=== PATIENT | male | born 1980 | race Caucasian/White ===

== ENCOUNTER → 2017-01-12 08:42 | Outpatient (CLI) | payer MEDICAID ==
--- NOTE | 2017-01-15 06:28 | EMG ---
PATIENT:RACH COVARRUBIAS III DATE OF SERVICE: 01/12/17 MEDICAL RECORD: [id number] DATE OF : 82 LOCATION: [facility] ADMISSION DATE: REFERRING PHYSICIAN: RUSSELL CLARKE MD INTERPRETING PHYSICIAN: ARPITA RAI MD DATE OF SERVICE: 01/14/2017 Electromyographic Report REFERRED BY: Dr. Clarke as an outpatient. DATE OF EXAMINATION: 01/12/2017 ELECTROMYOGRAPHIC DATA: Electromyographic examination is limited to both upper extremities and is limited to the nerve conduction studies only at the request of the referring physician. In the right upper extremity, right median motor stimulation elicits a compound motor action potential with a distal latency of 4.4 milliseconds, peak amplitude of 5 millivolts, and calculated conduction velocity of 52 meters per second. Right ulnar motor stimulation elicits a compound motor action potential with a distal latency of 3.1 milliseconds, peak amplitude of 4 millivolts, and calculated conduction velocity of 66 meters per second. Right ulnar motor stimulation across the elbow fails to elicit evidence of conduction block at this level. Antidromic right median sensory stimulation elicits a response with a distal latency of 4.9 milliseconds, amplitude of 8 microvolts and calculated conduction velocity of 61 meters per second. Antidromic right ulnar sensory stimulation elicits a response with a distal latency of 3.2 milliseconds, amplitude of 8 microvolts and calculated conduction velocity of 65 meters per second. The right median F wave has a latency of 31 milliseconds. In the left upper extremity, left median motor stimulation elicits a compound motor action potential with a distal latency of 5.0 milliseconds, peak amplitude of 4 millivolts, and calculated conduction velocity of 57 meters per second. Left ulnar motor stimulation elicits a compound motor action potential with a distal latency of 3.4 milliseconds, peak amplitude of 5 millivolts, and calculated conduction velocity of 61 meters per second. Left ulnar motor stimulation across the elbow fails to elicit evidence of conduction block at this level. Antidromic left median sensory stimulation elicits a response with a distal latency of 5.1 milliseconds, amplitude of 8 microvolts and calculated conduction velocity of 60 meters per second. Antidromic left ulnar sensory stimulation elicits a response with a distal latency of 3.3 milliseconds, amplitude of 19 microvolts and calculated conduction velocity of 62 meters per second. The left median F wave has a latency of 31 milliseconds. Needle electrode examination is not performed at this time. INTERPRETATION: Electromyographic examination of both upper extremities, limited to the nerve conduction studies only at the request of the referring physician, is indicative of median neuropathy, at or distal to the wrists bilaterally, moderate in degree electrically bilaterally, consistent with the diagnosis of bilateral carpal tunnel syndrome. The nerve conduction studies are otherwise normal. ELECTROMYGRAM/NERVE CONDUCTION [id number] COVARRUBIASRACH III TRANSINT:[id number] Voice Confirmation ID: [id number] DOCUMENT ID: [id number] ARPITA RAI MD at 0628 CC: [id number] DICTATION DATE: 01/14/17 0722 BACON SKINNER: 01/14/17 0926 [facility] CLI 01/12/17 [id number] [place] [address]
== END | disposition home or self-care (01) ==
LOC: D.CN 08:42
DX: R20.2 Paresthesia of skin (principal)

== ENCOUNTER 2017-09-22 21:46 | Emergency (ER) | payer MEDICAID ==
[2017-09-22 22:36] LABS: BASOPHILS 0.5 % (0-2); EOSINOPHILS 4.8 % (0-7); HEMATOCRIT 40.9 % (42.0-54.0); HEMOGLOBIN 14.1 g/dL (13.5-17.5); IMMATURE GRANULOCYTES 0.3 % (0-5); LYMPHOCYTES 47.6 % (15-50); MCH 30.7 pg (26.0-34.0); MCHC 34.5 g/dL (31.0-37.0); MCV 88.9 fL (80.0-100.0); MEAN PLATELET VOLUME 9.3 fL (7.4-10.4); MONOCYTES 9.9 % (2-11); NEUTROPHILS 36.9 % (40-80); PLATELET COUNT 229 10x3/uL (130-400); RDW 11.4 % (11.5-14.5); WBC 7.7 10x3/uL (4.8-10.8)
[2017-09-22 22:41] LABS: INR 0.98 (0.85-1.17); PROTIME 12.6 SECONDS (11.6-15.0)
[2017-09-22 22:42] LABS: APTT 29.6 SECONDS (22.8-39.4)
[2017-09-22 22:44] LABS: D-DIMER-QUANTITATIVE < 0.27 ug/mLFEU (0.20-0.54)
[2017-09-22 22:48] LABS: ALBUMIN 3.7 g/dL (3.4-5.0); ALKALINE PHOSPHATASE 73 U/L (46-116); ALT (SGPT) 28 U/L (10-68); BILIRUBIN - TOTAL 0.28 mg/dL (0.2-1.3); CALC OSMOLALITY 278 mosm/kg (275-300); CALCIUM 8.4 mg/dL (8.5-10.1); CARBON DIOXIDE 26.6 mmol/L (21.0-32.0); CHLORIDE - SERUM 104 mmol/L (98-107); CREATININE - SERUM 0.9 mg/dL (0.6-1.3); GLUCOSE 93 mg/dL (74-106); POTASSIUM - SERUM 3.8 mmol/L (3.5-5.1); PROTEIN - SERUM 7.3 g/dL (6.4-8.2); SODIUM 139 mmol/L (136-145); UREA NITROGEN 16 mg/dL (7-18); eGFR NON AFRICAN AMERICAN > 90 mL/min (90-120)
[2017-09-22 23:00] LABS: CKMB 0.5 U/L (0.0-3.6); CREATINE KINASE 138 UL (21-232); MAGNESIUM - SERUM 2.3 mg/dL (1.8-2.4); PRO BNP 23 pg/mL (0-125); TROPONIN-I < 0.017 ng/mL (0.000-0.060)
== END 2017-09-23 02:00 | disposition home or self-care (01) ==
LOC: D.ER 21:46
PROVIDERS: Family Medicine
DX: J20.9 Acute bronchitis, unspecified (principal)

== ENCOUNTER 2018-01-18 05:09 | Day surgery (SDC) | payer MEDICAID ==
[~2018-01-18] VITALS: Ht 175.3 cm; Wt 117.9 kg
--- NOTE | ~2018-01-18 | OP ---
PATIENT NAME: RACH COVARRUBIAS III MEDICAL RECORD: [id number] :82 LOCATION:[facility] ADMISSION DATE: SURGEON: WILLY GILMAN DO DATE OF OPERATION: 01/18/2018 PROCEDURE PERFORMED: Left endoscopic carpal tunnel release. PREOPERATIVE DIAGNOSIS: Left carpal tunnel syndrome. POSTOPERATIVE DIAGNOSIS: Left carpal tunnel syndrome. INDICATIONS: Mr. Covarrubias is a 37-year-old male who presented to my office this week complaining of carpal tunnel symptoms. He said his left hand worse than his right, will go to sleep, wake him up at night every night. He is tired of the pain. He said any time he would drive or talk on the cell phone, his hand would go numb and tingle and painful. He had a nerve conduction study about a year ago, which showed a distal motor latency of the median nerve on the left of 5.0 milliseconds and on the right of 4.4. I informed him that the left is certainly worse than the right. He had positive carpal tunnel compression test and told him that we could do the procedure and that informed him of the risks and benefits including damage to nerve, bleeding, infection and need for further surgery. He was okay with those risks and consented to the procedure. SURGEON: Willy Gilman DO DESCRIPTION OF PROCEDURE: The patient was taken to the operative suite, laid in supine position, given general anesthetic and 2 grams Ancef preoperatively. The left upper extremity was prepped and draped with a tourniquet above the elbow under the drapes. Once was prepped and draped, a timeout was performed. Everyone was in agreement with the correct side, site and patient and procedure. Incision was then marked out just proximal to the wrist crease and over the palmaris longus tendon. The incision was then made through the skin only and then careful blunt dissection was made down with Ragnell retractors into the carpal tunnel itself. The median nerve was encountered and the forearm fascia was released proximally with direct visualization using a scissors and pickups. Then, the carpal tunnel was entered with the measuring device and the dilators. Once was dilated up, the sheath was entered into the carpal tunnel. Prior to all this to starting, the left upper extremity was exsanguinated with an Esmarch and tourniquet was inflated to 250 mmHg. It was up for 17 minutes. Once the sheath was entered and had a good view of the transverse carpal ligament, this was probed and also rasped to ensure that there was nothing in the ligament. There was no nerve branch going through it and the knife blade was entered into the sheath and then raised up and the transverse carpal ligament, which was quite thick was divided with the blade. As the full thickness of the ligament was divided, fat herniated down into the carpal tunnel ensuring good release, then the blade and the sheath was withdrawn and Ragnell larger was used to lift the skin to ensure there was complete release of the transverse carpal ligament and there was good release. Scissors was also used to spread to ensure there was complete release. There were no remaining fibers. The tourniquet was then let down at 17 minutes. Pressure was held on the wound. Any bleeding was coagulated at time with the bipolar and 10 mL of 0.5% Marcaine without epinephrine was injected around the site. The incision was then closed with 5-0 Monocryl in inverted interrupted fashion and Steri-Strips. Steri-Strips, Adaptic, 4 x 4's, Kerlix, and a Coban was lightly placed over the wound and the hand was wrapped. The patient was awakened and taken to recovery in stable OPERATIVE REPORT [id number] RACH COVARRUBIAS III condition. TRANSINT:[id number] Voice Confirmation ID: [id number] DOCUMENT ID: [id number] WILLY GILMAN DO at 1207 CC: [id number] DICTATION DATE: 01/18/18 08 CALL CENTER TEAM LEADER: 01/18/18 1153 [facility] 01/18/18 [address] [place] [address]
[2018-01-18 06:18] VITALS: BP 117/76; Ht 175.3 cm; Wt 117.9 kg
[2018-01-18] MEDS ORDERED: DURICEF500 MG PO (07:59)
[2018-01-18] MEDS ORDERED: PERCOCET 5-3251 TAB PO (07:59)
[2018-02-28] MEDS ORDERED: IBUPROFEN800 MG (09:47)
== END 2018-01-18 09:45 | disposition home or self-care (01) ==
LOC: D.OPS 05:09 → D.PAN 07:30 → D.OPS 09:45
DX: G56.03 Carpal tunnel syndrome, bilateral upper limbs (principal); Z01.812 Encounter for preprocedural laboratory examination

== ENCOUNTER → 2018-01-31 14:05 | Outpatient (CLI) | payer MEDICAID ==
[2018-01-18 06:18] VITALS: BMI 38.5
[~2018-01-31 14:05] MED LIST: DURICEF500 MG PO; IBUPROFEN800 MG; KEFLEX500 MG PO; PERCOCET 5-3251 TAB PO; PERCOCET 7.5/321 TAB PO; TORADOL10 MG PO
== END | disposition home or self-care (01) ==
LOC: D.RAD 01-30 13:30 → D.MRI 01-30 14:30 → D.RAD 14:00
DX: M25.312 Other instability, left shoulder (principal)

== ENCOUNTER 2018-02-01 10:20 | Day surgery (SDC) | payer MEDICAID ==
[~2018-02-01] VITALS: Ht 175.3 cm; Wt 117.9 kg
--- NOTE | ~2018-02-01 | OP ---
PATIENT NAME: RACH COVARRUBIAS III MEDICAL RECORD: [id number] :82 LOCATION:[facility] ADMISSION DATE: SURGEON: WILLY GILMAN DO DATE OF OPERATION: 02/01/2018 PROCEDURE PERFORMED: Right endoscopic carpal tunnel release. PREOPERATIVE DIAGNOSIS: Right carpal tunnel syndrome. POSTOPERATIVE DIAGNOSIS: Right carpal tunnel syndrome. INDICATIONS: Mr. Covarrubias is a 37-year-old male that had his left endoscopic carpal tunnel done 2 weeks ago. He had a nerve conduction study last year that showed carpal tunnel syndrome on bilateral wrists. He chose to do the left one first. Today, he was here for the right. He is aware of the risks and benefits of the procedure. DESCRIPTION OF PROCEDURE: The patient was taken to the operative suite, laid in supine position, given general anesthetic and 2 grams of Ancef preoperatively. The right upper extremity was prepped and draped in sterile fashion. Everyone was in agreeance with the correct side, site, patient and procedure during the time-out. After he was prepped and draped and a timeout had been performed, a tourniquet was placed under the drapes, above the elbow, and then incision began just proximal to the wrist crease with a #15 blade scalpel, then Ragnells were used to bluntly dissect down to the carpal tunnel itself of proximal forearm. The forearm fascia distally was released first, distal-proximal, and then the carpal tunnel was entered with the dilators. Once the dilators had dilated up, the sheath was entered into the carpal tunnel. Camera was then entered in viewing the transverse carpal ligament. A rasp and probe were used to ensure that the only thing above the sheath was the transverse carpal ligament. Upon viewing this and feeling it, the blade was then entered and then the transcarpal ligament was transected. Then, a sheath and knife were removed and the more proximal part of the incision site of the transverse carpal ligament was divided with scissors and pickup. Then, a Calvin retractor was placed into the wound. The non-sharpened and the transverse carpal ligament was viewed and seen to be completely transected under loupe magnification. The tourniquet was then let down at 12 minutes. The right upper extremity had been exsanguinated prior to the incision and tourniquet was inflated to 250 mmHg. After the tourniquet was let down, the palm and the incision site was injected with 0.25% Marcaine with epinephrine, 10 mL around the site and any bleeding after that was coagulated with a bipolar. The incision was then closed with 5-0 Monocryl in inverted interrupted fashion. Steri-Strips was placed over the wound and Adaptic and a 4 x 4 and Tegaderm were placed on the incision site, and Kerlix and Coban was lightly wrapped on the wound. The patient was awakened and taken to recovery in stable condition. Blood loss was minimal. COMPLICATIONS: None. TRANSINT:[id number] Voice Confirmation ID: [id number] DOCUMENT ID: [id number] OPERATIVE REPORT [id number] RACH COVARRUBIAS III,WILLY Proctor DO at 1940 CC: [id number] DICTATION DATE: 02/01/18 1528 CLINICAL TRIAL ASSOCIATE: 02/01/18 1702 [facility] 02/01/18 [facility] [address] [place] [address]
[~2018-02-01 10:20] MED LIST changes: -IBUPROFEN800 MG; -KEFLEX500 MG PO; -PERCOCET 7.5/321 TAB PO; -TORADOL10 MG PO
[2018-02-01 13:09] VITALS: BP 122/80; Ht 175.3 cm; Wt 117.9 kg
[2018-02-01] MEDS ORDERED: PERCOCET 5-3251 TAB PO (15:21)
[2018-02-01] MEDS ORDERED: DURICEF500 MG PO (15:22)
[2018-02-28] MEDS ORDERED: IBUPROFEN800 MG (09:47)
== END 2018-02-01 17:55 | disposition home or self-care (01) ==
LOC: D.OPS 10:20 → D.PAN 14:15 → D.OPS 14:15 → D.PAN 15:20 → D.OPS 15:30
DX: G56.01 Carpal tunnel syndrome, right upper limb (principal); Z01.812 Encounter for preprocedural laboratory examination

== ENCOUNTER 2018-03-01 08:25 | Day surgery (SDC) | payer MEDICAID ==
[~2018-03-01] VITALS: Ht 175.3 cm; Wt 117.9 kg
--- NOTE | ~2018-03-01 | OP ---
PATIENT NAME: RACH COVARRUBIAS III MEDICAL RECORD: [id number] :82 LOCATION:[facility] ADMISSION DATE: SURGEON: WILLY GILMAN DO DATE OF OPERATION: 03/01/2018 PROCEDURE PERFORMED: Left shoulder arthroscopy with Bankart repair, mini open rotator cuff and biceps tenodesis. PREOPERATIVE DIAGNOSIS: Left shoulder anterior instability, labral tear and rotator cuff tear. POSTOPERATIVE DIAGNOSIS: Left shoulder anterior instability, labral tear and rotator cuff tear. INDICATIONS: Mr. Covrarubias is a 37-year-old male that dislocated his left shoulder approximately a year ago, when he fell, he had it reduced and then has had left shoulder pain since. He asked me to look at it as I have done his carpal tunnels. He got an MRI, which showed a large labral tear from 1 o'clock to 8 o'clock on the glenoid face. He had apprehension sign as well as a large rotator cuff tear in the supraspinatus and the bicep tendon was partially torn as well and the shoulder joint itself on the MRI. I showed these findings with him and informed him that it would be quite an extensive surgery as we do a rotator cuff repair along with a Bankart repair and bicep tenodesis. He was okay with that and is aware of the risks and benefits of the procedure including infection, bleeding, damage to nerves and vessels, need for further surgery, failure of the repair. He was okay with proceeding forward. SURGEON: Willy Gilman DO DESCRIPTION OF PROCEDURE: The patient had a block by anesthesia in the preoperative area and taken to the operative suite, laid in the right lateral recumbent position with the left arm prepped and draped. Timeout was performed. Everyone was in agreement with the correct side, site, and patient. The patient was given 900 mg of clindamycin before starting. Once timeout was performed, the joint itself was insufflated with 60 mL of normal saline with an 18-gauge spinal needle into the joint. The posterior portal was then established with an 11-blade scalpel and the trocar was entered into the shoulder joint. The camera was entered. The anterior 2 portals were then established. I went in the lower more inferior one for working portals and then the camera was switched to the anterior superior portal. The more posterior tear about 8 o'clock position was repaired first. The SutureTak was placed into the glenoid face about the 8 o'clock position. The mechanism somehow failed, but the suture was still through the labrum and so a PushLock was used bringing the inferior labrum and some of the capsule up nicely forming a bumper inferiorly. Then, the scope was switched to the posterior portal and another anchor was put at about 5 o'clock position, and labrum and capsular tissue was grabbed inferior to this and brought up and snugged down through the SutureTak. This was then cut into place. A third one was then used at the 3 o'clock position getting a nice grabbed tissue and again the SutureTak mechanism had failed, but the suture was still through the labrum and capsular tissue and then a PushLock was used at about the 2 o'clock position just above where the SutureTak was put into place. This pulled a nice bumper tissue, was very solid upon the glenoid face as where the anchors were put very stable. Then, the scope was entered in the subacromial space. It was quite inflamed due to the previous procedures. The rotator cuff tear was noted from the articular side as OPERATIVE REPORT [id number] RACH COVARRUBIAS III well. We then opened from the lateral portal. Careful dissection was made down to the rotator cuff tear and a SpeedBridge was used to repair the rotator cuff tendon. A [id number] stitch was used as it did have a split and was more of an L-shaped tear. The L-shaped tear had a nice repair done to it with the medial and lateral anchors being used. Bicep tenodesis was then done of the anterior humerus. Dissection was made down to the humerus itself. The biceps tendon was pulled out through this, whipstitched and a single button was placed unicortically into the humerus having a nice taut repair and then tied down and then a free needle was used to suture back through the tendon, securing it more into place. Then, the excess suture and tendon was cut. The wounds were then thoroughly irrigated. The biceps tenodesis site was closed with 2-0 Vicryl and 4-0 Monocryl as was the rotator cuff repair and the portal sites and then Dermabond was placed on the skin. Telfa and Tegaderm were then placed on the skin. Blood loss was minimal. Complications were none. TRANSINT:[id number] Voice Confirmation ID: [id number] DOCUMENT ID: [id number] WILLY GILMAN DO at 1737 CC: [id number] DICTATION DATE: 03/01/18 1515 ROUTE DRIVER SALESPERSON: 03/01/18 1605 [facility] [address] [place] [id number]
[~2018-03-01 08:25] MED LIST changes: +IBUPROFEN800 MG
[2018-03-01 08:46] VITALS: BP 132/82; BMI 38.5
[2018-03-01 08:52] VITALS: BP 132/82; Ht 175.3 cm; Wt 117.9 kg
[2018-03-01] MEDS ORDERED: TORADOL10 MG PO (15:08)
[2018-03-01] MEDS ORDERED: PERCOCET 7.5/321 TAB PO (15:08)
[2018-03-01] MEDS ORDERED: KEFLEX500 MG PO (15:09)
== END 2018-03-01 18:00 | disposition home or self-care (01) ==
LOC: D.OPS 08:25 → D.PAN 09:00 → D.OPS 09:50
DX: M25.312 Other instability, left shoulder (principal); S43.492A Other sprain of left shoulder joint, initial encounter; M75.112 Incomplete rotator cuff tear or rupture of left shoulder, not specified as traumatic; Z01.812 Encounter for preprocedural laboratory examination

== ENCOUNTER 2018-09-12 21:06 | Emergency (ER) | payer MEDICAID ==
[~2018-09-12] VITALS: Ht 175.3 cm; Wt 121.8 kg
[~2018-09-12 21:06] MED LIST changes: +KEFLEX500 MG PO; +PERCOCET 7.5/321 TAB PO; +TORADOL10 MG PO
[2018-09-12 21:14] VITALS: Ht 175.3 cm; Wt 121.8 kg
[2018-09-12] MEDS ORDERED: ZYRTEC10 MG PO (21:16)
[2018-09-12] MEDS ORDERED: TORADOL10 MG PO (22:06)
[2018-09-12 23:20] VITALS: BP 121/80
== END 2018-09-12 23:21 | disposition home or self-care (01) ==
LOC: D.ER 21:06
DX: M54.5 Low back pain (principal)